=== PATIENT | male | born 1995 | race Caucasian/White ===

== ENCOUNTER 2019-02-08 11:07 | Emergency (ER) | payer BC, OTHER ==
[~2019-02-08] VITALS: Ht 180 cm; Wt 82.7 kg
--- NOTE | 2019-02-08 11:28 | ED GI ---
General Stated Complaint: PELVIS "MASS" Source of Information: Patient Exam Limitations: No Limitations History of Present Illness Date Seen by Provider: Feb 08, 2019 Time Seen by Provider: 11:25 Initial Comments To ER per private vehicle with reports of a bulge to the right inguinal region. He first noticed this about one week ago in the shower. He is able to push on this area and reduce the size of the bulge. He reports the pain is about 2-3, tolerable and just a mild discomfort. He is passing gas and having bowel movements per normal. No fever no nausea no vomiting. Timing/Duration: 1-2 Days Severity/Quality: Moderate Location: Other (inguinal) Radiation: No Radiation Activities at Onset: None Associated Symptoms: Denies Symptoms Allergies and Home Medications Allergies Coded Allergies: Penicillins (Verified Allergy, Unknown, 02/08/19) azithromycin (Verified Allergy, Unknown, 02/08/19) ceftriaxone (Verified Allergy, Unknown, 02/08/19) pectin (Verified Allergy, Unknown, 02/08/19) Patient Home Medication List Home Medication List Reviewed: Yes Review of Systems Review of Systems Constitutional: see HPI EENTM: No Symptoms Reported Respiratory: No Symptoms Reported Cardiovascular: No Symptoms Reported Gastrointestinal: See HPI, Abdominal Pain Genitourinary: No Symptoms Reported (minimal right inguinal) Musculoskeletal: no symptoms reported Skin: no symptoms reported Psychiatric/Neurological: No Symptoms Reported Endocrine: No Symptoms Reported Hematologic/Lymphatic: No Symptoms Reported Past Qglrhgi-Ybqesb-Jeqzac Hx Patient Social History Recent Foreign Travel: No Contact w/Someone Who Travel: No Physical Exam Vital Signs Vital Signs - First Documented 02/08/19 11:16 Temp 36.6 Pulse 79 Resp 18 B/P (MAP) 129/87 (101) Pulse Ox 95 O2 Delivery Room Air Capillary Refill : Height/Weight/BMI Height: '" Weight: lbs. oz. kg; BMI Method: General Appearance: WD/WN, no apparent distress HEENT: PERRL/EOMI, normal ENT inspection Respiratory: no respiratory distress, no accessory muscle use Gastrointestinal: normal bowel sounds, soft Extremities: normal range of motion, non-tender Pelvic: other (minor bulge to the right inguinal region,) Neurologic/Psychiatric: alert, normal mood/affect, oriented x 3 Skin: normal color, warm/dry Progress/Results/Core Measures Results/Orders My Orders Orders - KATIA PAGE APRN Ct Pelvis Wo (02/08/19 11:23) Vital Signs/I&O 02/08/19 11:16 Temp 36.6 Pulse 79 Resp 18 B/P (MAP) 129/87 (101) Pulse Ox 95 O2 Delivery Room Air Departure Impression Primary Impression: Right inguinal hernia Disposition: 01 HOME, SELF-CARE Condition: Improved Departure-Patient Inst. Decision time for Depature: 12:06 Referrals: CHATO WHITE MD (PCP/Family) Primary Care Physician PEÑA CAMPOS BRETT D DO KIDO, TAKAAKI MD Patient Instructions: Groin Hernia (DC), Groin Hernia Repair, Laparoscopic Surgery Add. Discharge Instructions: 1. Call a surgeon of your choosing this week to make an appointment to be seen whenever they're able to. Return to ER for intolerable pain, any other concerns. No lifting more than 5 pounds or straining in the meantime. KATIA PAGE ASSOCIATE PROGRAMMER ANALYST Feb 08, 2019 11:28
--- NOTE | 2019-02-08 11:56 | Diagnostic Imaging Report ---
PROCEDURE: CT pelvis without contrast. TECHNIQUE: Multiple contiguous axial images were obtained through the pelvis without the use of intravenous contrast. Sagittal and coronal reformations were performed. Auto Exposure Controls were utilized during the CT exam to meet ALARA standards for radiation dose reduction. INDICATION: Right groin pain. FINDINGS: There appears to be a fat-containing right inguinal hernia. No herniated bowel loops are detected. Bowel loops in the pelvis are normal caliber. There is no free fluid or fluid collection identified. No mass or lymphadenopathy is detected. Both hips demonstrate normal femoral acetabular alignment. Femoral heads and necks are intact. No fractures are seen. IMPRESSION: Fat-containing right inguinal hernia. No other significant abnormality is detected. Dictated by: Dictated on workstation # [id number]
[2019-02-08 12:15] VITALS: BP 129/87
== END 2019-02-08 12:15 | disposition home or self-care (01) ==
LOC: ER 11:10
DX: K40.90 Unilateral inguinal hernia, without obstruction or gangrene, not specified as recurrent (principal); Z88.0 Allergy status to penicillin; Z88.1 Allergy status to other antibiotic agents; Z88.8 Allergy status to other drugs, medicaments and biological substances
CPT/HCPCS: 72192

== ENCOUNTER → 2019-03-08 | Outpatient (CLI) | payer BC ==
[~2019-03-08] MED LIST: ACHD5005 PO
[2019-03-08 17:25] LABS: SEMEN VOLUME 1.3 ML (1.5-5.0)
== END ==
LOC: LAB 16:31
PROVIDERS: ATTEND Family Medicine
DX: N46.9 Male infertility, unspecified (principal)
CPT/HCPCS: 89320

== ENCOUNTER 2021-02-25 11:00 | Outpatient (RCR) | payer SELFPAY | END 2021-03-18 | disposition home or self-care (01) | LOC: LAB 11:00 | PROVIDERS: ATTEND Nurse Practitioner Family | DX: R86.8 Other abnormal findings in specimens from male genital organs (principal) | CPT/HCPCS: 89320 ==

== ENCOUNTER → 2021-03-05 | Outpatient (CLI) | payer SELFPAY ==
[2021-03-05 12:29] LABS: SEMEN VOLUME 3.4 ML (1.5-5.0)
== END ==
LOC: LAB 10:53
PROVIDERS: ATTEND Family Medicine
DX: N46.9 Male infertility, unspecified (principal)
CPT/HCPCS: 89320

== ENCOUNTER 2021-07-01 21:03 | Emergency (ER) | payer BC ==
[~2021-07-01] VITALS: Ht 183 cm; Wt 83.6 kg
[2021-07-01] MEDS ORDERED: FAMOTIDINE 20MG/2ML IV (PEPCID) IV STA (21:50)
--- NOTE | 2021-07-01 21:55 | ED Abdominal Pain ---
General Chief Complaint: Abdominal/GI Problems Stated Complaint: ABD PAIN Nursing Triage Note: c/o upper abdominal pain/bloating since 06/27/21. reports improvement with bland diet over weekend , worse today. History of Present Illness Date Seen by Provider: July 01, 2021 Time Seen by Provider: 21:10 Initial Comments 26-year-old male is here with complaints of epigastric pain which is been going on for the past 5 days which is associated with nausea and vomiting. Patient has a hard time keeping food down. Patient's last meal was earlier today when he had a burger at [employer]. Denies fever, diarrhea, chest pain, shortness of breath, cough, known sick contacts. Allergies and Home Medications Allergies Coded Allergies: Penicillins (Verified Allergy, Unknown, Anaphylaxis, 02/25/19) ceftriaxone (Verified Allergy, Unknown, Anaphylaxis, 02/25/19) clindamycin (Verified Allergy, Unknown, Anaphylaxis, 02/25/19) pectin (Verified Allergy, Unknown, 02/08/19) Patient Home Medication List Home Medication List Reviewed: Yes Hydrocodone Bit/Acetaminophen (Lortab 5 Mg Tablet) 1 Tab Tab, 11 TAB PO Q6H PRN for PAIN-MODERATE Prescribed by: PEÑA CAMPOS on 03/02/19 1451 Review of Systems Review of Systems Constitutional: no symptoms reported EENTM: No Symptoms Reported Respiratory: No Symptoms Reported Cardiovascular: No Symptoms Reported Gastrointestinal: Abdominal Pain, Nausea, Poor Appetite, Poor Fluid Intake, Vomiting Genitourinary: No Symptoms Reported Musculoskeletal: no symptoms reported Skin: no symptoms reported Psychiatric/Neurological: No Symptoms Reported Endocrine: No Symptoms Reported Hematologic/Lymphatic: No Symptoms Reported Past Ygjijqg-Vkdswp-Ncgcef Hx Patient Social History Tobacco Use?: No Substance use?: No Alcohol Use?: Yes Alcohol Frequency: Once in a while Pt feels they are or have been: No Immunizations Up To Date Tetanus Booster (TDap): Unknown PED Vaccines UTD: Yes Seasonal Allergies Seasonal Allergies: No Past Medical History Surgery/Hospitalization HX: H. HERNIA, T/A, VOCAL CHORD SX. Surgeries: Yes (vocal cord polyps) Tonsillectomy Respiratory: No Cardiac: No Neurological: No Genitourinary: No Gastrointestinal: No (ING HERNIA) Musculoskeletal: No Endocrine: No HEENT: No Cancer: No Psychosocial: No Integumentary: No Blood Disorders: No Physical Exam Vital Signs Vital Signs - First Documented 07/01/21 21:36 Temp 36.5 Pulse 71 Resp 16 B/P (MAP) 139/82 (101) Pulse Ox 97 O2 Delivery Room Air Capillary Refill : Less Than 3 Seconds Height/Weight/BMI Height: '" Weight: lbs. oz. kg; 24.00 BMI Method: General Appearance: no apparent distress HEENT: PERRL/EOMI Neck: full range of motion Respiratory: lungs clear Cardiovascular: normal peripheral pulses Gastrointestinal: normal bowel sounds, soft, no organomegaly, tenderness (epigastric area) Extremities: normal range of motion Neurologic/Psychiatric: no motor/sensory deficits, alert, normal mood/affect, oriented x 3 Skin: normal color Progress/Results/Core Measures Results/Orders Lab Results Laboratory Tests Test 07/01/21 21:50 07/01/21 21:55 Range/Units Urine Color YELLOW Urine Clarity CLEAR Urine pH 7.0 5-9 Urine Specific [place] 1.020 1.016-1.022 Urine Protein NEGATIVE NEGATIVE Urine Glucose (UA) NEGATIVE NEGATIVE Urine Ketones NEGATIVE NEGATIVE Urine Nitrite NEGATIVE NEGATIVE Urine Bilirubin NEGATIVE NEGATIVE Urine Urobilinogen 1.0 < = 1.0 MG/DL Urine Leukocyte Esterase NEGATIVE NEGATIVE Urine RBC (Auto) NEGATIVE NEGATIVE Urine RBC 0-2 /HPF Urine WBC RARE /HPF Urine Squamous Epithelial Cells NONE /HPF Urine Renal Epithelial Cells NONE /HPF Urine Crystals NONE /LPF Urine Bacteria NEGATIVE /HPF Urine Casts NONE /LPF Urine Mucus NEGATIVE /LPF Urine Culture Indicated NO Urine Opiates Screen NEGATIVE NEGATIVE Urine Oxycodone Screen NEGATIVE NEGATIVE Urine Methadone Screen NEGATIVE NEGATIVE Urine Propoxyphene Screen NEGATIVE NEGATIVE Urine Barbiturates Screen NEGATIVE NEGATIVE Ur Tricyclic Antidepressants Screen NEGATIVE NEGATIVE Urine Phencyclidine Screen NEGATIVE NEGATIVE Urine Amphetamines Screen NEGATIVE NEGATIVE Urine Methamphetamines Screen NEGATIVE NEGATIVE Urine Benzodiazepines Screen NEGATIVE NEGATIVE Urine Cocaine Screen NEGATIVE NEGATIVE Urine Cannabinoids Screen NEGATIVE NEGATIVE White Blood Count 11.1 H 4.3-11.0 10^3/uL Red Blood Count 4.79 4.30-5.52 10^6/uL Hemoglobin 14.0 13.3-17.7 g/dL Hematocrit 42 40-54 % Mean Corpuscular Volume 88 80-99 fL Mean Corpuscular Hemoglobin 29 25-34 pg Mean Corpuscular Hemoglobin Concent 33 32-36 g/dL Red Cell Distribution Width 12.8 10.0-14.5 % Platelet Count 225 130-400 10^3/uL Mean Platelet Volume 9.8 9.0-12.2 fL Immature Granulocyte % (Auto) 0 % Neutrophils (%) (Auto) 62 42-75 % Lymphocytes (%) (Auto) 29 12-44 % Monocytes (%) (Auto) 7 0-12 % Eosinophils (%) (Auto) 2 0-10 % Basophils (%) (Auto) 0 0-10 % Neutrophils # (Auto) 6.9 1.8-7.8 10^3/uL Lymphocytes # (Auto) 3.2 1.0-4.0 10^3/uL Monocytes # (Auto) 0.8 0.0-1.0 10^3/uL Eosinophils # (Auto) 0.2 0.0-0.3 10^3/uL Basophils # (Auto) 0.0 0.0-0.1 10^3/uL Immature Granulocyte # (Auto) 0.0 0.0-0.1 10^3/uL Sodium Level 141 135-145 MMOL/L Potassium Level 3.7 3.6-5.0 MMOL/L Chloride Level 105 98-107 MMOL/L Carbon Dioxide Level 25 21-32 MMOL/L Anion Gap 11 5-14 MMOL/L Blood Urea Nitrogen 13 7-18 MG/DL Creatinine 0.96 0.60-1.30 MG/DL Estimat Glomerular Filtration Rate 112 BUN/Creatinine Ratio 14 Glucose Level 94 70-105 MG/DL Calcium Level 8.8 8.5-10.1 MG/DL Corrected Calcium 8.6 8.5-10.1 MG/DL Total Bilirubin 0.4 0.1-1.0 MG/DL Aspartate Amino Transf (AST/SGOT) 18 5-34 U/L Alanine Aminotransferase (ALT/SGPT) 40 0-55 U/L Alkaline Phosphatase 57 40-136 U/L Total Protein 7.2 6.4-8.2 GM/DL Albumin 4.3 3.2-4.5 GM/DL Lipase 17 8-78 U/L My Orders Orders - LASHAY LEI MD Comprehensive Metabolic Panel (07/01/21 21:49) Lipase (07/01/21 21:49) Ua Culture If Indicated (07/01/21 21:49) Ed Iv/Invasive Line Start (07/01/21 21:49) Cbc With Automated Diff (07/01/21 21:49) Ct Abdomen/Pelvis Wo (07/01/21 21:49) Drug Screen Stat (Urine) (07/01/21 21:49) Ondansetron Injection (Zofran Injectio (07/01/21 22:00) Famotidine Injection (Pepcid Injection) (07/01/21 21:50) Ed Iv/Invasive Line Start (07/01/21 21:50) Ns Iv 1000 Ml (Sodium Chloride 0.9%) (07/01/21 22:00) Medications Given in ED Current Medications Medications Dose Ordered Sig/Artem Route Start Time Stop Time Status Last Admin Dose Admin Ondansetron HCl 4 mg ONCE ONCE IVP 07/01/21 22:00 07/01/21 22:01 DC 07/01/21 21:57 4 MG Vital Signs/I&O 07/01/21 21:36 Temp 36.5 Pulse 71 Resp 16 B/P (MAP) 139/82 (101) Pulse Ox 97 O2 Delivery Room Air Blood Pressure Mean: 101 Progress Progress Note : Progress Note 1. EPIGASTRIC PAIN: Gastritis & Nephrolithiasis - CT ABD WITHOUT CONTRAST: - Labs unremarkable - UA/ UDS normal - Pepcid iv/ Zofran iv/ NS IVF STAT - Prescription for ZOfran and Pepcid - Diet advice: bland diet - F/u with PCP in the next 3 to 7 days -The patient was seen in the ED, and treated appropriately to presentation at a specific point in time. Patient is informed that there is a possibility that di sease and illness can evolve and change in acuity rapidly or slowly after patient is discharged from the ER. Precautionary advice given to the patient for immediate return to ER if symptoms worsen or do not resolve, and to seek emergency care sooner rather than later. Pt also advised on the importance of PCP follow up and compliance with management and follow up plan with PCP and/or specialist, as this is part of the management plan. Pt verbally expressed understanding. Diagnostic Imaging Diagonstic Imaging: CT Plain Films/CT/US/NM/MRI: abdomen Comments [facility] [place], [place] NAME: EDSON HANSON MED REC#: [id number] PT STATUS: REG ER : 1995 PHYSICIAN: LASHAY LEI MD ADMIT DATE: 07/01/21/ER Signed Date of Exam:07/01/21 CT ABDOMEN/PELVIS WO PROCEDURE: CT abdomen and pelvis without contrast. TECHNIQUE: Multiple contiguous axial images were obtained through the abdomen and pelvis without the use of intravenous contrast. Auto Exposure Controls were utilized during the CT exam to meet ALARA standards for radiation dose reduction. INDICATION: Epigastric pain. COMPARISON: 02/08/2019. FINDINGS: The heart is unremarkable. The lung bases are clear. There is hepatic steatosis. The gallbladder is decompressed. Bilateral nonobstructing renal calculi are present. No hydronephrosis or obstructing calculi. The urinary bladder is decompressed. The spleen, pancreas, and adrenal glands have a normal appearance. There is no pathologically enlarged mesenteric or retroperitoneal adenopathy. The bowel loops are nondilated. The appendix is visualized in the right lower quadrant and has a normal appearance. There is no free fluid or free air. No acute osseous abnormalities. There is no free air, loculated collection, or adenopathy in the pelvis. IMPRESSION: 1. Bilateral nonobstructing renal calculi. No hydronephrosis or obstructing calculi. 2. Hepatic steatosis. Dictated by: Dictated on workstation # [id number] Dict: 07/01/212226 Trans: 07/01/212231 [facility] [id number] Interpreted by: FARNAZ PAN DO Electronically signed by: FARNAZ PAN DO 07/01/212231 Departure Impression Primary Impression: Gastritis Qualified Codes: K29.00 - Acute gastritis without bleeding Additional Impression: Nephrolithiasis Disposition: 01 HOME, SELF-CARE Condition: Stable Departure-Patient Inst. Referrals: CHATO WHITE MD (PCP/Family) Primary Care Physician Patient Instructions: Gastritis (DC), Kidney Stone Diet, Kidney Stone, Adult ED Add. Discharge Instructions: - Prescription for ZOfran and Pepcid - Diet advice: bland diet - F/u with PCP in the next 3 to 7 days - Adequate hydration advised -The patient was seen in the ED, and treated appropriately to presentation at a specific point in time. Patient is informed that there is a possibility that disease and illness can evolve and change in acuity rapidly or slowly after patient is discharged from the ER. Precautionary advice given to the patient for immediate return to ER if symptoms worsen or do not resolve, and to seek emergency care sooner rather than later. Pt also advised on the importance of PCP follow up and compliance with management and follow up plan with PCP and/or specialist, as this is part of the management plan. Pt verbally expressed understanding. All discharge instructions reviewed with patient and/or family. Voiced understanding. Scripts Famotidine (Pepcid) 20 Mg Tablet 20 MG PO BID for 14 Days, #28 TAB Prov: LASHAY LEI MD 07/01/21 Ondansetron (Ondansetron Odt) 4 Mg Tab.rapdis 4 MG PO Q6H PRN for NAUSEA/VOMITING for 3 Days, #20 TAB Prov: LASHAY LEI MD 07/01/21 Work/School Note: Work Release Form Date Seen in the Emergency Department: July 01, 2021 Return to Work: July 04, 2021 Restrictions: Return-No Vomiting(24hrs) LASHAY LEI MD July 01, 2021 21:55
[2021-07-01] MEDS ORDERED: NS IV 1000 ML 1,000 ML IV SCH (22:00)
[2021-07-01] MEDS ORDERED: ONDANSETRON 4 MG/2 ML (SDV) Z0FRAN IVP ONE (22:00)
[2021-07-01 22:05] LABS: BASOPHILS % (AUTO) 0 % (0-10); EOSINOPHILS # (AUTO) 0.2 10^3/uL (0.0-0.3); EOSINOPHILS % (AUTO) 2 % (0-10); HEMATOCRIT 42 % (40-54); LYMPHOCYTES # (AUTO) 3.2 10^3/uL (1.0-4.0); LYMPHOCYTES % (AUTO) 29 % (12-44); MEAN CORPUSCULAR HEMOGLOBIN 29 pg (25-34); MEAN CORPUSCULAR HGB CONC 33 g/dL (32-36); MEAN CORPUSCULAR VOLUME 88 fL (80-99); MEAN PLATELET VOLUME 9.8 fL (9.0-12.2); MONOCYTES # (AUTO) 0.8 10^3/uL (0.0-1.0); MONOCYTES % (AUTO) 7 % (0-12); NEUTROPHILS # (AUTO) 6.9 10^3/uL (1.8-7.8); NEUTROPHILS % (AUTO) 62 % (42-75); PLATELET COUNT 225 10^3/uL (130-400); WHITE BLOOD COUNT 11.1 10^3/uL (4.3-11.0)
[2021-07-01 22:07] LABS: BILIRUBIN,URINE NEGATIVE (NEGATIVE); CLARITY,URINE CLEAR; COLOR,URINE YELLOW; GLUCOSE, URINE (UA) NEGATIVE (NEGATIVE); KETONES,URINE NEGATIVE (NEGATIVE); LEUKOCYTE ESTERASE ,URINE NEGATIVE (NEGATIVE); NITRITE,URINE NEGATIVE (NEGATIVE); PROTEIN,URINE NEGATIVE (NEGATIVE)
[2021-07-01 22:15] LABS: ALBUMIN 4.3 GM/DL (3.2-4.5); POTASSIUM 3.7 MMOL/L (3.6-5.0)
[2021-07-01 22:16] LABS: CALCIUM 8.8 MG/DL (8.5-10.1)
[2021-07-01 22:17] LABS: TOTAL PROTEIN 7.2 GM/DL (6.4-8.2)
[2021-07-01 22:18] LABS: BACTERIA,URINE NEGATIVE /HPF; RBC,URINE 0-2 /HPF; WBC,URINE RARE /HPF
[2021-07-01 22:19] LABS: BILIRUBIN,TOTAL 0.4 MG/DL (0.1-1.0)
[2021-07-01 22:21] LABS: AMPHETAMINE SCREEN, URINE NEGATIVE (NEGATIVE); BARBITURATE SCREEN URINE NEGATIVE (NEGATIVE); BENZODIAZEPINES SCREEN URINE NEGATIVE (NEGATIVE); CANNABINOID SCREEN, URINE NEGATIVE (NEGATIVE); COCAINE SCREEN URINE NEGATIVE (NEGATIVE); METHADONE STAT NEGATIVE (NEGATIVE); OPIATE SCREEN URINE NEGATIVE (NEGATIVE); OXYCODONE STAT NEGATIVE (NEGATIVE); PROPOXYPHENE STAT NEGATIVE (NEGATIVE); TRICYCLIC ANTIDEPRESSANTS SCRE NEGATIVE (NEGATIVE)
[2021-07-01 22:21] LABS: CREATININE SERUM 0.96 MG/DL (0.60-1.30)
--- NOTE | 2021-07-01 22:32 | Diagnostic Imaging Report ---
PROCEDURE: CT abdomen and pelvis without contrast. TECHNIQUE: Multiple contiguous axial images were obtained through the abdomen and pelvis without the use of intravenous contrast. Auto Exposure Controls were utilized during the CT exam to meet ALARA standards for radiation dose reduction. INDICATION: Epigastric pain. COMPARISON: 02/08/2019. FINDINGS: The heart is unremarkable. The lung bases are clear. There is hepatic steatosis. The gallbladder is decompressed. Bilateral nonobstructing renal calculi are present. No hydronephrosis or obstructing calculi. The urinary bladder is decompressed. The spleen, pancreas, and adrenal glands have a normal appearance. There is no pathologically enlarged mesenteric or retroperitoneal adenopathy. The bowel loops are nondilated. The appendix is visualized in the right lower quadrant and has a normal appearance. There is no free fluid or free air. No acute osseous abnormalities. There is no free air, loculated collection, or adenopathy in the pelvis. IMPRESSION: 1. Bilateral nonobstructing renal calculi. No hydronephrosis or obstructing calculi. 2. Hepatic steatosis. Dictated by: Dictated on workstation # [id number]
[2021-07-01] MEDS ORDERED: FAMO-119 PO (23:05)
[2021-07-01] MEDS ORDERED: ONDA4TAB11 PO (23:05)
[2021-07-01 23:07] VITALS: BP 135/74
== END 2021-07-01 23:10 | disposition home or self-care (01) ==
LOC: EDUNIT# 21:03 → ER 21:04
DX: K29.00 Acute gastritis without bleeding (principal); N20.0 Calculus of kidney
CPT/HCPCS: 36415; 74176; 80053; 80306; 81000; 83690; 85025

== ENCOUNTER → 2021-07-29 | Outpatient (CLI) | payer BC ==
[~2021-07-29] MED LIST changes: +CATHETER FLUSH 10 ML SYR IVP PRN; +FAMO-119 PO; +ONDA4TAB11 PO
--- NOTE | 2021-07-29 12:57 | Diagnostic Imaging Report ---
INDICATION: Epigastric pain. TECHNIQUE: Patient was administered 5.4 mCi of technetium-99m Choletec intravenously, and imaging over the abdomen was performed. At 60 minutes, patient ingested Ensure, and a gallbladder ejection fraction was calculated. FINDINGS: There is homogeneous uptake of activity by the liver with prompt excretion of activity into the common duct and gallbladder. There is normal passage of activity into the small bowel. Gallbladder ejection fraction is slightly low at 31%. Normal values are 33% or greater. IMPRESSION: 1. Patent cystic duct and common bile duct. 2. Slightly low gallbladder ejection fraction of 31%. Dictated by: Dictated on workstation # [id number]
== END ==
LOC: CARD 10:00
PROVIDERS: ATTEND Nurse Practitioner Family
DX: K29.00 Acute gastritis without bleeding (principal)
CPT/HCPCS: 78227; A9537

== ENCOUNTER 2021-10-19 21:48 | Emergency (ER) | payer BC ==
[~2021-10-19] VITALS: Ht 182.8 cm; Wt 86.4 kg
[~2021-10-19 21:48] MED LIST changes: -CATHETER FLUSH 10 ML SYR IVP PRN
[2021-10-19] MEDS ORDERED: ONDANSETRON 4 MG/2 ML (SDV) Z0FRAN IVP ONE (22:30)
[2021-10-19] MEDS ORDERED: KETOROLAC 30 MG/ML VIAL IVP ONE (22:30)
[2021-10-19] MEDS ORDERED: LACTATED RINGERS 1,000 ML IV STA (22:30)
--- NOTE | 2021-10-19 22:37 | ED Abdominal Pain ---
General Stated Complaint: LEFT LOWER ABD PAIN,N/V Source of Information: Patient Exam Limitations: No Limitations (LINDY PARRISH) History of Present Illness Date Seen by Provider: Oct 19, 2021 Time Seen by Provider: 22:15 Initial Comments Patient to the ER by private conveyance from home with chief complaint of left lower quadrant abdominal discomfort, nausea, sweating from pain but no fevers or chills. He has a history of kidney stones. The pain is nonradiating, severe 10 out of 10. He has had a right inguinal hernia repair. No other abdominal surgeries or medical history. He has a history of allergies to penicillins. He has seen a urologist at [facility] but does not remember the name in the past for kidney stones. He follows with Dr. Fritz for primary care. (LINDY PARRISH) Allergies and Home Medications Allergies Coded Allergies: Penicillins (Verified Allergy, Unknown, Anaphylaxis, 02/25/19) ceftriaxone (Verified Allergy, Unknown, Anaphylaxis, 02/25/19) clindamycin (Verified Allergy, Unknown, Anaphylaxis, 02/25/19) pectin (Verified Allergy, Unknown, 02/08/19) Patient Home Medication List Home Medication List Reviewed: Yes (LINDY PARRISH) Famotidine (Pepcid) 20 Mg Tablet, 20 MG PO BID Prescribed by: LSAHAY LEI MD on 07/01/212304 Hydrocodone Bit/Acetaminophen (Lortab 5 Mg Tablet) 1 Tab Tab, 11 TAB PO Q6H PRN for PAIN-MODERATE Prescribed by: PEÑA CAMPOS on 03/02/19 1451 Hydrocodone/Acetaminophen (Hydrocodone-Acetamin 10-325 mg) 10 Mg-325 Mg Tablet, 1 EACH PO Q4H Prescribed by: XI BURNHAM on 10/20/21 030 Ondansetron (Ondansetron Odt) 4 Mg Tab.rapdis, 4 MG PO Q6H PRN for NAUSEA/VOMITING Prescribed by: LASHAY LEI MD on 07/01/212304 Ondansetron (Ondansetron Odt) 8 Mg Tab.rapdis, 8 MG PO Q6H Prescribed by: XI BURNHAM on 10/20/21 030 Tamsulosin HCl (Flomax) 0.4 Mg Cap, 0.4 MG PO DAILY Prescribed by: XI BURNHAM on 10/20/21 0300 Review of Systems Review of Systems Constitutional: No chills, No dizziness, No fever EENTM: No Blurred Vision, No Double Vision Respiratory: Denies Cough, Denies Shortness of Air Cardiovascular: Denies Chest Pain, Denies Edema Gastrointestinal: See HPI, Abdominal Pain; Denies Constipated, Denies Diarrhea; Nausea; Denies Vomiting Genitourinary: Denies Burning, Denies Discharge Musculoskeletal: No back pain, No joint pain (LINDY PARRISH) All Other Systems Reviewed Negative Unless Noted: Yes (LINDY PARRISH) Past Ukkymvq-[id number] Hx Patient Social History Tobacco Use?: No Use of E-Cig and/or Vaping dev: No Substance use?: No Alcohol Use?: No (LINDY PARRISH) Immunizations Up To Date Tetanus Booster (TDap): Unknown PED Vaccines UTD: Yes (LINDY PARRISH) Seasonal Allergies Seasonal Allergies: No (LINDY PARRISH) Past Medical History Surgery/Hospitalization HX: H. HERNIA, T/A, VOCAL CHORD SX. Surgeries: Yes (vocal cord polyps) Tonsillectomy Respiratory: No Cardiac: No Neurological: No Genitourinary: No Gastrointestinal: No (ING HERNIA) Musculoskeletal: No Endocrine: No HEENT: No Cancer: No Psychosocial: No Integumentary: No Blood Disorders: No (LINDY PARRISH) Physical Exam Vital Signs Vital Signs - First Documented 10/19/21 22:29 Temp 36.4 Pulse 92 Resp 24 B/P (MAP) 163/137 (146) Pulse Ox 95 (XI BURNHAM DO) Vital Signs Capillary Refill : (LINDY PARRISH) Height/Weight/BMI Height: '" Weight: lbs. oz. kg; 24.00 BMI Method: General Appearance: WD/WN, moderate distress HEENT: PERRL/EOMI, pharynx normal Neck: full range of motion, supple, normal inspection Respiratory: lungs clear, normal breath sounds, no respiratory distress, no accessory muscle use Cardiovascular: normal peripheral pulses, regular rate, rhythm Gastrointestinal: normal bowel sounds, no organomegaly; No distended; guarding (Left lower quadrant), tenderness (Severe tenderness to light touch over the left lower quadrant abdomen without McBurney's point tenderness, Arnold sign.) Extremities: normal inspection, normal capillary refill Neurologic/Psychiatric: alert, normal mood/affect, oriented x 3 Skin: warm/dry, pallor (LINDY PARRISH) Progress/Results/Core Measures Results/Orders Lab Results Laboratory Tests Test 10/19/21 22:35 10/19/21 22:50 Range/Units White Blood Count 14.1 H 4.3-11.0 10^3/uL Red Blood Count 5.14 4.30-5.52 10^6/uL Hemoglobin 14.9 13.3-17.7 g/dL Hematocrit 44 40-54 % Mean Corpuscular Volume 86 80-99 fL Mean Corpuscular Hemoglobin 29 25-34 pg Mean Corpuscular Hemoglobin Concent 34 32-36 g/dL Red Cell Distribution Width 13.3 10.0-14.5 % Platelet Count 295 130-400 10^3/uL Mean Platelet Volume 9.5 9.0-12.2 fL Immature Granulocyte % (Auto) 0 % Neutrophils (%) (Auto) 56 42-75 % Lymphocytes (%) (Auto) 37 12-44 % Monocytes (%) (Auto) 5 0-12 % Eosinophils (%) (Auto) 2 0-10 % Basophils (%) (Auto) 0 0-10 % Neutrophils # (Auto) 7.9 H 1.8-7.8 10^3/uL Lymphocytes # (Auto) 5.2 H 1.0-4.0 10^3/uL Monocytes # (Auto) 0.7 0.0-1.0 10^3/uL Eosinophils # (Auto) 0.2 0.0-0.3 10^3/uL Basophils # (Auto) 0.1 0.0-0.1 10^3/uL Immature Granulocyte # (Auto) 0.1 0.0-0.1 10^3/uL Neutrophils % (Manual) 56 % Lymphocytes % (Manual) 43 % Monocytes % (Manual) 1 % Blood Morphology Comment NORMAL Sodium Level 141 135-145 MMOL/L Potassium Level 3.5 L 3.6-5.0 MMOL/L Chloride Level 103 98-107 MMOL/L Carbon Dioxide Level 25 21-32 MMOL/L Anion Gap 13 5-14 MMOL/L Blood Urea Nitrogen 12 7-18 MG/DL Creatinine 1.15 0.60-1.30 MG/DL Estimat Glomerular Filtration Rate 90 BUN/Creatinine Ratio 10 Glucose Level 135 H 70-105 MG/DL Calcium Level 9.8 8.5-10.1 MG/DL Corrected Calcium 9.4 8.5-10.1 MG/DL Total Bilirubin 0.5 0.1-1.0 MG/DL Aspartate Amino Transf (AST/SGOT) 18 5-34 U/L Alanine Aminotransferase (ALT/SGPT) 25 0-55 U/L Alkaline Phosphatase 57 40-136 U/L C-Reactive Protein High Sensitivity 0.12 0.00-0.50 MG/DL Total Protein 7.8 6.4-8.2 GM/DL Albumin 4.5 3.2-4.5 GM/DL Lipase 12 8-78 U/L Urine Color YELLOW Urine Clarity CLEAR Urine pH 5.0 5-9 Urine Specific [place] >=1.030 1.016-1.022 Urine Protein NEGATIVE NEGATIVE Urine Glucose (UA) NEGATIVE NEGATIVE Urine Ketones NEGATIVE NEGATIVE Urine Nitrite NEGATIVE NEGATIVE Urine Bilirubin NEGATIVE NEGATIVE Urine Urobilinogen 0.2 < = 1.0 MG/DL Urine Leukocyte Esterase NEGATIVE NEGATIVE Urine RBC (Auto) 1+ H NEGATIVE Urine RBC 0-2 /HPF Urine WBC NONE /HPF Urine Crystals NONE /LPF Urine Bacteria NEGATIVE /HPF Urine Casts NONE /LPF Urine Mucus NEGATIVE /LPF Urine Culture Indicated NO (XI BURNHAM DO) My Orders Orders - XI BURNHAM DO Ondansetron Injection (Zofran Injectio (10/20/21 00:45) Ketamine Syringe (Ketamine Syringe) (10/20/21 00:45) Ns (Ivpb) (Sodium Chloride 0.9% Ivpb Bag (10/20/21 00:48) Ed Iv/Invasive Line Start (10/20/21 00:52) Lactated Ringers (Lr 1000 Ml Iv Solution (10/20/21 01:00) Tamsulosin Capsule (Flomax Capsule) (10/20/21 01:00) Ondansetron Injection (Zofran Injectio (10/20/21 02:15) Hydrocodone/Apap 10/325 Tablet (Lortab 1 (10/20/21 03:00) Rx-Hydrocodone/Apap 5-325 Mg (Rx-Vicodin (10/20/21 03:00) Rx-Ondansetron Po (Rx-Zofran Po) (10/20/21 02:57) (XI BURNHAM DO) Medications Given in ED Current Medications Medications Dose Ordered Sig/Artem Route Start Time Stop Time Status Last Admin Dose Admin Acetaminophen/ Hydrocodone Bitart 1 ea ONCE ONCE PO 10/20/21 03:00 10/20/21 03:01 DC 10/20/21 03:06 1 EA Acetaminophen/ Hydrocodone Bitart 1 ea Q4H PRN PO 10/20/21 03:00 10/20/21 03:11 DC 10/20/21 03:06 1 EA Fentanyl Citrate 50 mcg ONCE ONCE IVP 10/19/21 23:30 10/19/21 23:31 DC 10/19/21 23:37 50 MCG Fentanyl Citrate 100 mcg ONCE ONCE IVP 10/19/21 23:15 10/19/21 23:16 DC 10/19/21 23:06 100 MCG Ketamine HCl 25 mg ONCE ONCE IV 10/19/21 23:30 10/19/21 23:31 DC 10/19/21 23:37 25 MG Ketamine HCl 25 mg ONCE ONCE IV 10/20/21 00:45 10/20/21 00:46 DC 10/20/21 00:51 25 MG Ketorolac Tromethamine 30 mg ONCE ONCE IVP 10/19/21 22:30 10/19/21 22:32 DC 10/19/21 22:35 30 MG Lactated Ringer's 1,000 ml @ 0 mls/hr Q0M ONCE IV 10/20/21 01:00 10/20/21 01:01 DC 10/20/21 01:00 999 MLS/HR Ondansetron HCl 8 mg ONCE ONCE IVP 10/19/21 22:30 10/19/21 22:32 DC 10/19/21 22:35 8 MG Ondansetron HCl 8 mg ONCE ONCE IVP 10/20/21 00:45 10/20/21 00:46 DC 10/20/21 00:51 8 MG Ondansetron HCl 8 mg ONCE ONCE IVP 10/20/21 02:15 10/20/21 02:17 DC 10/20/21 02:35 8 MG Sodium Chloride 50 ml @ ud STK-MED ONCE .ROUTE 10/19/21 23:31 10/19/21 23:36 DC 10/19/21 23:38 250 MLS/HR Sodium Chloride 50 ml @ ud STK-MED ONCE .ROUTE 10/20/21 00:48 10/20/21 00:51 DC 10/20/21 00:52 150 MLS/HR (XI BURNHAM DO) Vital Signs/I&O 10/19/21 22:29 Temp 36.4 Pulse 92 Resp 24 B/P (MAP) 163/137 (146) Pulse Ox 95 (XI BURNHAM DO) Progress Progress Note #1: Time: 22:34 Progress Note We will start with some pain meds, nausea medicines, a liter of fluids and a CT without IV contrast kidney stone study. Progress Note #2: Time: 23:29 Progress Note Patient was still having quite a bit of pain after the Toradol to be given 100 mcg of fentanyl. There are some blood in the urine so a kidney stone is highly suspected. A CT has been ordered and Dr. Brunham will take over care of the patient. When I went back to check on the patient after the 100 mcg of fentanyl patient was still saying his pain was down from 11 to a 9 and a writhing in pain. We will give him ketamine and another 50 mcg of fentanyl. (LINDY PARRISH) Progress Note : Progress Note 2330--ASSUMED CARE OF PT AT END OF SHIFT. CT IS PENDING. PT WAS GIVEN ADDITIONAL KETAMINE AND ZOFRAN, WELL FLOMAX AND ORAL HYDROCODONE PT WAS MUCH IMPROVED AT DISMISSAL PT STATES HE SEES [facility] UROLOGIST. (XI BURNHAM DO) Diagnostic Imaging Diagonstic Imaging: CT Plain Films/CT/US/NM/MRI: abdomen, pelvis Comments [facility] [place], [place] NAME: EDSON HANSON [facility] REC#: [id number] PT STATUS: DEP ER : 1995 PHYSICIAN: LINDY PARRISH MD ADMIT DATE: 10/19/21/ER Signed Date of Exam:10/20/21 CT ABD/PELVIS WO(KIDNEY STONE) EXAMINATION: CT abdomen and pelvis without contrast. TECHNIQUE: Multiple contiguous axial images were obtained through the abdomen and pelvis without the use of intravenous contrast. All CT scans use one or more of the following dose optimizing techniques: automated exposure control, MA and/or KvP adjustment based on patient size and exam type or iterative reconstruction. HISTORY: Flank pain, kidney stone suspected COMPARISON: 07/01/2021 FINDINGS: Lung bases: The lung bases are clear. Solid organs: The liver is normal. The gallbladder is normal. There is no biliary ductal dilation. Pancreas is normal. Spleen is normal. Adrenal glands are normal. There are bilateral nonobstructing renal calculi measuring up to 0.3 cm. There is mild left hydronephrosis and hydroureter. There is a stone within the urinary bladder near the left ureterovesicular junction measuring 0.3 cm. Bowel: The stomach and small bowel are normal without obstruction. The colon and appendix are normal. Peritoneum: There is no intraperitoneal free fluid or free air. No suspicious lymphadenopathy. Vasculature: Normal without aneurysm. Musculoskeletal: No suspicious osseous lesion or compression fracture. Pelvis: The prostate gland is normal. A 0.3 cm calculus within the dependent urinary bladder near the left ureterovesicular junction. IMPRESSION: 1. Mild left hydronephrosis and hydroureter likely secondary to recently passed stone versus stone within the distal most ureterovesicular junction measuring 0.3 cm. 2. Additional bilateral nonobstructing renal calculi measuring up to 0.3 cm. 3. Agree with preliminary interpretation. Dictated by: Dictated on workstation # [id number] Dict: 10/20/2107 Trans: 10/20/21 0756 HUMBERTO [id number] Interpreted by: GINA ARGUETA DO Electronically signed by: GINA ARGUETA DO 10/20/21 0756 Reviewed: Reviewed by Or Diagonstic Imaging: Xray Plain Films/CT/US/NM/MRI: abdomen, pelvis Comments [facility], [place] NAME: EDSON HANSON [facility] REC#: [id number] PT STATUS: DEP ER : 1995 PHYSICIAN: LINDY PARRISH MD ADMIT DATE: 10/19/21/ER Signed Date of Exam:10/20/21 ABDOMEN/KUB 1VIEW EXAMINATION: Abdomen 1 view HISTORY: abdomen pain COMPARISON: None available. FINDINGS: There is a moderate amount of gas and stool throughout the colon. Nonobstructive bowel gas pattern. No radiopaque foreign body. The lung bases are clear. The osseous structures are intact. IMPRESSION: Moderate stool burden without other acute abnormality in the abdomen. Dictated by: Dictated on workstation # [id number] Dict: 10/20/2103 Trans: 10/20/21 0756 HUMBERTO [id number] Interpreted by: GINA ARGUETA DO Electronically signed by: GINA ARGUETA DO 10/20/21 0756 Reviewed: Reviewed by Me (LINDY PARRISH) Comments KUB--NO ACUTE PROCESS, UNABLE TO VISUALIZED ANY STONES AT THIS TIME. PENDING RADIOLOGIST REVIEW CT ABDOMEN/PELVIS--PER [facility] VIA FAX AT 1436 -3 MM STONE IN THE URINARY BLADDER -MILD LEFT PERINEPHRIC STRANDING AND HYDRONEPHROSIS -BILATERAL NEPHROLITHIASIS Reviewed: Reviewed by Me (XI BURNHAM DO) Departure Impression Primary Impression: Nephrolithiasis Disposition: HOME, SELF-CARE Condition: Improved Departure-Patient Inst. Decision time for Depature: 02:58 (XI BURNHAM DO) Referrals: CHATO FRITZ MD (PCP/Family) Primary Care Physician Patient Instructions: Kidney Stone, Adult ED Add. Discharge Instructions: LOTS OF CLEAR LIQUIDS FOLLOW UP WITH DR. OAKES ON THURSDAY FOR FURTHER CARE RETURN TO ER IF SYMPTOMS WORSEN Scripts Hydrocodone/Acetaminophen (Hydrocodone-Acetamin 10-325 mg) 10 Mg-325 Mg Tablet 1 EACH PO Q4H for Pain, #15 TAB Prov: XI BURNHAM DO 10/20/21 Tamsulosin HCl (Flomax) 0.4 Mg Cap 0.4 MG PO DAILY, #10 CAP Prov: XI BURNHAM DO 10/20/21 Ondansetron (Ondansetron Odt) 8 Mg Tab.rapdis 8 MG PO Q6H, #20 TAB Prov: XI BURNHAM DO 10/20/21 LINDY PARRISH Oct 19, 2021 22:37 XI BURNHAM DO Oct 20, 2021 03:01
[2021-10-19 22:38] LABS: BASOPHILS # (AUTO) 0.1 10^3/uL (0.0-0.1); BASOPHILS % (AUTO) 0 % (0-10); EOSINOPHILS # (AUTO) 0.2 10^3/uL (0.0-0.3); EOSINOPHILS % (AUTO) 2 % (0-10); HEMATOCRIT 44 % (40-54); HEMOGLOBIN 14.9 g/dL (13.3-17.7); LYMPHOCYTES # (AUTO) 5.2 10^3/uL (1.0-4.0); LYMPHOCYTES % (AUTO) 37 % (12-44); MEAN CORPUSCULAR HEMOGLOBIN 29 pg (25-34); MEAN CORPUSCULAR HGB CONC 34 g/dL (32-36); MEAN CORPUSCULAR VOLUME 86 fL (80-99); MEAN PLATELET VOLUME 9.5 fL (9.0-12.2); MONOCYTES # (AUTO) 0.7 10^3/uL (0.0-1.0); MONOCYTES % (AUTO) 5 % (0-12); NEUTROPHILS # (AUTO) 7.9 10^3/uL (1.8-7.8); NEUTROPHILS % (AUTO) 56 % (42-75); PLATELET COUNT 295 10^3/uL (130-400); WHITE BLOOD COUNT 14.1 10^3/uL (4.3-11.0)
[2021-10-19 22:54] LABS: BILIRUBIN,URINE NEGATIVE (NEGATIVE); CLARITY,URINE CLEAR; COLOR,URINE YELLOW; GLUCOSE, URINE (UA) NEGATIVE (NEGATIVE); KETONES,URINE NEGATIVE (NEGATIVE); LEUKOCYTE ESTERASE ,URINE NEGATIVE (NEGATIVE); NITRITE,URINE NEGATIVE (NEGATIVE); PROTEIN,URINE NEGATIVE (NEGATIVE)
[2021-10-19 22:58] LABS: ALBUMIN 4.5 GM/DL (3.2-4.5); POTASSIUM 3.5 MMOL/L (3.6-5.0)
[2021-10-19 22:59] LABS: CALCIUM 9.8 MG/DL (8.5-10.1)
[2021-10-19 23:01] LABS: TOTAL PROTEIN 7.8 GM/DL (6.4-8.2)
[2021-10-19 23:02] LABS: BILIRUBIN,TOTAL 0.5 MG/DL (0.1-1.0)
[2021-10-19 23:04] LABS: CREATININE SERUM 1.15 MG/DL (0.60-1.30)
[2021-10-19 23:10] LABS: LYMPHOCYTES % (MANUAL) 43 %; MONOCYTES % (MANUAL) 1 %; NEUTROPHILS % (MANUAL) 56 %; RBC MORPH NORMAL
[2021-10-19 23:15] LABS: BACTERIA,URINE NEGATIVE /HPF; RBC,URINE 0-2 /HPF
[2021-10-19] MEDS ORDERED: fentaNYL INJ 100 MCG/2 ML AMP IVP ONE ×2 (23:15→23:30)
[2021-10-19] MEDS ORDERED: KETAMINE 50 MG/5 ML SYRINGE IV ONE (23:30)
[2021-10-19] MEDS ORDERED: NS (IVPB) 50 ML ONE (23:31)
[2021-10-20] MEDS ORDERED: ONDANSETRON 4 MG/2 ML (SDV) Z0FRAN IVP ONE ×2 (00:45→02:15)
[2021-10-20] MEDS ORDERED: KETAMINE 50 MG/5 ML SYRINGE IV ONE (00:45)
[2021-10-20] MEDS ORDERED: NS (IVPB) 50 ML ONE (00:48)
[2021-10-20] MEDS ORDERED: TAMSULOSIN 0.4 MG (FLOMAX) CAP PO SCH (01:00)
[2021-10-20] MEDS ORDERED: LACTATED RINGERS 1,000 ML IV ONE (01:00)
[2021-10-20] MEDS ORDERED: RX-ONDANSETRON 4 MG ODT (ZOFRAN) PPK #4 PO STA (02:57)
[2021-10-20] MEDS ORDERED: HYDR-3820 PO (03:00)
[2021-10-20] MEDS ORDERED: TMSL.4C PO (03:00)
[2021-10-20] MEDS ORDERED: ONDA8TAB13 PO (03:00)
[2021-10-20 03:10] VITALS: BP 139/97
--- NOTE | 2021-10-20 07:07 | Diagnostic Imaging Report ---
EXAMINATION: Abdomen 1 view HISTORY: abdomen pain COMPARISON: None available. FINDINGS: There is a moderate amount of gas and stool throughout the colon. Nonobstructive bowel gas pattern. No radiopaque foreign body. The lung bases are clear. The osseous structures are intact. IMPRESSION: Moderate stool burden without other acute abnormality in the abdomen. Dictated by: Dictated on workstation # [id number]
--- NOTE | 2021-10-20 07:16 | Diagnostic Imaging Report ---
EXAMINATION: CT abdomen and pelvis without contrast. TECHNIQUE: Multiple contiguous axial images were obtained through the abdomen and pelvis without the use of intravenous contrast. All CT scans use one or more of the following dose optimizing techniques: automated exposure control, MA and/or KvP adjustment based on patient size and exam type or iterative reconstruction. HISTORY: Flank pain, kidney stone suspected COMPARISON: 07/01/2021 FINDINGS: Lung bases: The lung bases are clear. Solid organs: The liver is normal. The gallbladder is normal. There is no biliary ductal dilation. Pancreas is normal. Spleen is normal. Adrenal glands are normal. There are bilateral nonobstructing renal calculi measuring up to 0.3 cm. There is mild left hydronephrosis and hydroureter. There is a stone within the urinary bladder near the left ureterovesicular junction measuring 0.3 cm. Bowel: The stomach and small bowel are normal without obstruction. The colon and appendix are normal. Peritoneum: There is no intraperitoneal free fluid or free air. No suspicious lymphadenopathy. Vasculature: Normal without aneurysm. Musculoskeletal: No suspicious osseous lesion or compression fracture. Pelvis: The prostate gland is normal. A 0.3 cm calculus within the dependent urinary bladder near the left ureterovesicular junction. IMPRESSION: 1. Mild left hydronephrosis and hydroureter likely secondary to recently passed stone versus stone within the distal most ureterovesicular junction measuring 0.3 cm. 2. Additional bilateral nonobstructing renal calculi measuring up to 0.3 cm. 3. Agree with preliminary interpretation. Dictated by: Dictated on workstation # [id number]
== END 2021-10-20 03:11 | disposition home or self-care (01) ==
LOC: EDUNIT# 21:48 → ER 21:50
DX: N13.2 Hydronephrosis with renal and ureteral calculous obstruction (principal)
CPT/HCPCS: 36415; 74018; 74176; 80053; 81000; 83690; 85007; 85027; 86141; 99283

== ENCOUNTER → 2022-01-10 | Outpatient (CLI) | payer SELFPAY ==
[~2022-01-10] MED LIST changes: +HYDR-3820 PO; +ONDA8TAB13 PO; +TMSL.4C PO
== END ==
LOC: LAB 12:06
PROVIDERS: ATTEND Urology
DX: N46.9 Male infertility, unspecified (principal); R86.9 Unspecified abnormal finding in specimens from male genital organs
CPT/HCPCS: 89320

== ENCOUNTER → 2022-03-21 | Outpatient (CLI) | payer BC ==
--- NOTE | 2022-03-21 10:44 | Diagnostic Imaging Report ---
PROCEDURE: US Scrotum. TECHNIQUE: Multiple real-time grayscale images were obtained over the scrotum in various projections bilaterally. INDICATION: Pain. Right testicle measures 4.7 x 2.4 x 3.2 cm. Left testicle measures 5.1 x 2.1 x 3.1 cm. The testes have normal echogenicity and blood flow. Epididymis appears normal bilaterally. There are no hydroceles. There is no definite varicocele seen on either side. IMPRESSION: Unremarkable scrotal ultrasound. Dictated by: Dictated on workstation # [id number]
== END ==
LOC: RAD 08:01
PROVIDERS: ATTEND Urology
DX: I86.1 Scrotal varices (principal)
CPT/HCPCS: 76870